=== PATIENT | female | born 1995 | race Caucasian/White ===

== ENCOUNTER 2022-05-12 09:26 | Emergency (ER) | payer SELFPAY ==
[2022-05-12] MEDS ORDERED: LORazepam 1 MG Tab PO ONE (10:31)
[2022-05-12] MEDS ORDERED: Sodium Chloride 0.9% 1,000 ML IV ONE (10:31)
[2022-05-12 12:09] LABS: CARBON DIOXIDE,CO2 27.7 mmol/L (21.0-32.0); POTASSIUM,K 3.8 mmol/L (3.5-5.1)
== END 2022-05-12 12:31 | disposition home or self-care (01) ==
LOC: MW.ED 09:26
DX: F41.9 Anxiety disorder, unspecified (principal)
CPT/HCPCS: 36415; 80053; 80305; 81001; 81025; 84443; 85025; 96360; 99283; A9270; J7030